=== PATIENT | male | born 1950 | race Caucasian/White ===

== ENCOUNTER 2019-09-24 17:44 | Emergency (ER) | payer BC, OTHER ==
[2019-09-24 18:20] LABS: ABS Eosinophils 0.1 10^3/ul (0-0.6); ABS Lymphocytes 1.7 10^3/ul (1.0-4.8); ABS Monocytes 0.5 10^3/ul (0-0.8); ABS Neutrophils 5.4 10^3/ul (1.5-7.7); Eosinophil % 1.8 %; Hematocrit 44 % (42-52); Hemoglobin 14.8 g/dL (14.0-18.0); Lymphocyte % 21.7 %; Mean Corpuscular HGB Conc 33 g/dL (31-36); Mean Corpuscular Hemoglobin 29 pg (27-31); Mean Corpuscular Volume 87 fL (80-94); Mean Platelet Volume 7.8 fL (7.4-10.4); Nucleated Red Blood Cells % 0.1; Platelet Count 253 10^3/uL (150-450); Red Blood Count 5.12 10^6 /uL (4.18-5.48); Red Cell Distribution Width 14 % (10-15); White Blood Count 7.7 10^3/uL (3.5-10.8)
[2019-09-24 18:37] LABS: Albumin 4.6 g/dL (3.2-5.2); Calcium 8.7 mg/dL (8.6-10.3); Magnesium 2.1 mg/dL (1.9-2.7); Potassium 3.9 mmol/L (3.5-5.0); Total Bilirubin 0.5 mg/dL (0.2-1.0)
[2019-09-24 18:43] LABS: Albumin/Globulin Ratio 1.6 (1-3); EGFR African American 83.8 (>60); EGFR Non-African American 69.3 (>60); Globulin 2.9 g/dL (2-4); Total Protein 7.5 g/dL (6.4-8.9)
[2019-09-24 20:03] VITALS: BP 161/95
--- NOTE | 2019-09-24 20:34 | ED ---
Syncope/Near Syncope - HPI Summary HPI Summary: 69 y/o male presented to [facility] after an episode of syncope earlier today. Pt was sitting at the table for dinner when he felt light headed, syncopized and hit his zoroastrianism on the tabletop. Per family, he was unresponsive for 40s with his eyes open. After waking up, he was diaphoretic and confused for a few minutes. He did not eat all day. No hx cardiac problems, PE. No CP. Feels well now. Fhx of stomach cx and OK noted. 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 Onset/Duration: Resolved Timing: Seconds Context: Witnessed Activity At Onset: At Rest Aggravating Factor(s): Nothing Alleviating Factor(s): Nothing Associated Signs And Symptoms: Diaphoresis, Other - confusion - Allergies/Home Medications Allergies/Adverse Reactions: Allergies Allergy/AdvReac Type Severity Reaction Status Date / Time procaine Allergy Anxiety Verified 09/24/19 18:11 PMH/Surg Hx/FS Hx/Imm Hx Endocrine/Hematology History: Denies: Hx Diabetes Cardiovascular History: Denies: Hx Angina, Hx Coronary Artery Disease, Hx Hypercholesterolemia, Hx Hypertension, Hx Myocardial Infarction, Hx Valvular Heart Disease Respiratory History: Denies: Hx Asthma, Hx Chronic Obstructive Pulmonary Disease (COPD) Musculoskeletal History: Denies: Hx Arthritis, Hx Back Problems, Hx Bursitis, Hx Fibromyalgia, Hx Gout , Hx Orthopedic Injury, Hx Osteoporosis, Hx Scoliosis, Hx Tendonitis, Other Musculoskeletal History - Surgical History Surgery Procedure, Year, and Place: vasectomy Infectious Disease History: No Infectious Disease History: Denies: Traveled Outside the [place] in Last 30 Days - Family History Known Family History: Positive: Cardiac Disease - OK, Other - stomach cx - Social History Alcohol Use: Rare Substance Use Type: Reports: None Smoking Status (MU): Former Smoker Review of Systems Positive: Skin Diaphoresis Neurological/Mental Status: Other - confusion All Other Systems Reviewed And Are Negative: Yes Physical Exam - Summary Physical Exam Summary: Constitutional: Well-developed, Well-nourished, Alert. (-) Distressed Skin: Warm, Dry HENT: Normocephalic; Atraumatic Eyes: Conjunctiva normal Neck: Musculoskeletal ROM normal neck. (-) JVD, (-) Stridor, (-) Nuchal rigidity Cardio: Rhythm regular, rate normal, Heart sounds normal; Intact distal pulses; Radial pulses are 2+ and symmetric. (-) Murmur Pulmonary/Chest wall: Effort normal. (-) Respiratory distress, (-) Wheezes, (-) Rales Abd: Soft, (-) tenderness, (-) Distension, (-) Guarding, (-) Rebound Musculoskeletal: (-) Edema Lymph: (-) Cervical adenopathy Neuro: GCS 15 Triage Information Reviewed: Yes Vital Signs On Initial Exam: Initial Vitals Temp Pulse Resp BP Pulse Ox 97.5 F 75 19 179/97 97 09/24/19 17:49 09/24/19 17:49 09/24/19 17:49 09/24/19 17:49 09/24/19 17:49 Vital Signs Reviewed: Yes Procedures - Sedation Patient Received Moderate/Deep Sedation with Procedure: No Diagnostics - Vital Signs Vital Signs Temp Pulse Resp BP Pulse Ox 09/24/19 20:13 98.0 F 78 18 161/95 98 09/24/19 19:53 88 16 161/95 95 09/24/19 19:52 84 24 156/85 94 09/24/19 19:50 80 21 148/90 96 09/24/19 19:20 78 17 145/87 95 09/24/19 19:00 79 17 97 09/24/19 18:50 80 18 160/89 96 09/24/19 18:45 74 17 161/90 98 09/24/19 18:20 76 15 162/83 94 09/24/19 18:00 74 25 95 09/24/19 17:51 76 14 96 09/24/19 17:50 78 179/97 97 09/24/19 17:49 97.5 F 75 19 179/97 97 - Laboratory Lab Results: Lab Results 09/24/19 09/24/19 Range/Units 18:12 18:12 WBC 7.7 (3.5-10.8) 10^3/uL RBC 5.12 (4.18-5.48) 10^6 /uL Hgb 14.8 (14.0-18.0) g/dL Hct 44 (42-52) % MCV 87 (80-94) fL MCH 29 (27-31) pg MCHC 33 (31-36) g/dL RDW 14 (10-15) % Plt Count 253 (150-450) 10^3/uL MPV 7.8 (7.4-10.4) fL Neut % (Auto) 69.8 % Lymph % (Auto) 21.7 % Dent % (Auto) 6.3 % Eos % (Auto) 1.8 % Baso % (Auto) 0.4 % Absolute Neuts (auto) 5.4 (1.5-7.7) 10^3/ul Absolute Lymphs (auto) 1.7 (1.0-4.8) 10^3/ul Absolute Monos (auto) 0.5 (0-0.8) 10^3/ul Absolute Eos (auto) 0.1 (0-0.6) 10^3/ul Absolute Basos (auto) 0.0 (0-0.2) 10^3/ul Absolute Nucleated RBC 0.0 10^3/ul Nucleated RBC % 0.1 Sodium 137 (135-145) mmol/L Potassium 3.9 (3.5-5.0) mmol/L Chloride 104 (101-111) mmol/L Carbon Dioxide 23 (22-32) mmol/L Anion Gap 10 (2-11) mmol/L BUN 17 (6-24) mg/dL Creatinine 1.06 (0.67-1.17) mg/dL Est GFR ( Amer) 83.8 (>60) Est GFR (Non-Af Amer) 69.3 (>60) BUN/Creatinine Ratio 16.0 (8-20) Glucose 92 (70-100) mg/dL Calcium 8.7 (8.6-10.3) mg/dL Magnesium 2.1 (1.9-2.7) mg/dL Total Bilirubin 0.50 (0.2-1.0) mg/dL AST 19 (13-39) U/L ALT 19 (7-52) U/L Alkaline Phosphatase 105 H (34-104) U/L Troponin I 0.00 (<0.03) ng/mL Total Protein 7.5 (6.4-8.9) g/dL Albumin 4.6 (3.2-5.2) g/dL Globulin 2.9 (2-4) g/dL Albumin/Globulin Ratio 1.6 (1-3) Result Diagrams: 09/24/19 18:12 09/24/19 18:12 Lab Statement: Any lab studies that have been ordered have been reviewed, and results considered in the medical decision making process. - Radiology cxr Radiology Interpretation Completed By: ED Physician Summary of Radiographic Findings: No acute abnormalities. This xray was reviewed and interpreted by the ED physician pending official read. - CT head CT Interpretation Completed By: Radiologist Summary of CT Findings: IMPRESSION: 1. There is age-related diffuse cerebral and cerebellar volume loss and chronic. microvascular ischemic disease. There is chronic lacunar infarct of the right. basal ganglia and right caudate nucleus. 2. No acute intracranial pathology. 3. There are dependent fluid levels in the maxillary sinuses and the sphenoid. sinus, cannot exclude acute sinusitis. The ED physician has reviewed this report. - EKG 1802 Cardiac Rate: NL EKG Rhythm: Sinus Rhythm Summary of EKG Findings: An EKG at 1802 reveals normal sinus rhythm 73bpm, nml axis, nml intervals. No STEMI. T wave inversions in leads III and v1 when compared to 2012 when he had T wave flattening in III. ED physician has reviewed and interpreted this EKG. Course/Dx Course Of Treatment: 69 y/o male p/w syncopal episode. Syncope. DDx: Most likely 2/2 poor PO intake. Seizure: no witnessed seizure activity, incontinence or h/o seizures to suggest seizure today. Hypoxia and hypoglycemia less likely in this patient with normal sats and BG. Cardiac issue : electrical (dysarrhythmias, brugada, WPW, long QT). Less likely given no evidence of drop attack, no palpitations, no EKG findings to predispose to arrhythmias. No CP, no STEMI on EKG; NSTEMI unlikely to cause brief cardiogenic shock in absence of other significant findings, so likely does not need full cardiac rule out with troponins and stress. Mechanical: outflow obstruction like HOCM or aortic stenosis, tamponade-less likely as no murmur, non-exertional , no hypertrophy on EKG. Vessels: PE, dissection, AAA. Clinical picture inconsistent, no abd pain, no pulsatile mass, symmetric pulses, no risk factors of PE. Volume issue: Could have some element of dehydration from dec PO. No signs of recent illness to suggest infection, no e/o anemia by history or PE. Orthostatics WNL. Neuro: No [place], no personal or family h/o cerebral aneurysm, nml neuro exam, head CT negative. - Diagnoses Provider Diagnoses: Syncope Discharge ED - Sign-Out/Discharge Documenting (check all that apply): Patient Departure - dc - Discharge Plan Condition: Stable Disposition: HOME Patient Education Materials: Syncope (ED) Referrals: Jesusita Martinez [Primary Care Provider] - Additional Instructions: You were seen in the emergency department for pain. Your head CT did not show any abnormalities. Lab work was normal. Please drink lots of fluids when you are home. Please follow up with your primary care doctor in next 2-3 days and return to emergency department for chest pain, trouble breathing, passing out, worsening or concerning symptoms. It was a pleasure taking care of you today. - Billing Disposition and Condition Condition: STABLE Disposition: Home - Attestation Statements Document Initiated by Angelicae: Yes Documenting Scribe: Jassi Pepper Provider For Whom Scribe is Documenting (Include Credential): Manoj Collins Scribe Attestation: IJassi, scribed for Manoj Collins on 09/25/19 at 1258. Scribe Documentation Reviewed: Yes Provider Attestation: The documentation as recorded by the Jassi willams accurately reflects the service I personally performed and the decisions made by Manoj alvarado Status of Scribe Document: Viewed
== END 2019-09-24 20:13 | disposition home or self-care (01) ==
LOC: ED 17:44
DX: R55 Syncope and collapse (principal); Z87.891 Personal history of nicotine dependence; Z98.52 Vasectomy status; Z88.4 Allergy status to anesthetic agent
CPT/HCPCS: 36415; 70450; 71046; 80053; 83735; 84484; 85025; 93005; 99283